=== PATIENT | male | born 1990 | race Caucasian/White ===

== ENCOUNTER 2024-01-09 16:46 | Emergency (ER) | payer SELFPAY ==
[2024-01-09 16:47] VITALS: BP 151/90; PULSE 65; RESP 16; TEMP 36.2; O2SAT 99; BMI 22.5
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
--- NOTE | 2024-01-09 17:10 | RAD_ITS ---
STUDY: X-RAY - LEFT CLAVICLE REASON FOR EXAM: Male, 33 years old. injury TECHNIQUE: 2 view(s) of the clavicle. COMPARISON: No relevant prior comparison study available FINDINGS: BONES: No fracture demonstrated. JOINTS: No dislocation. SOFT TISSUES: Unremarkable. RAD/Clavicle IMPRESSION: No evidence of fracture. Electronically Signed: Lindsay Moser MD at 17:35 EDT ,
[2024-01-09 17:52] VITALS: BP 130/88; PULSE 60; RESP 16; TEMP 36.2; O2SAT 100
== END 2024-01-09 17:53 | disposition home or self-care (01) ==
PROVIDERS: Emergency Provider Emergency Medicine; Visit Provider Emergency Medicine
DX: S40.012A Contusion of left shoulder, initial encounter (principal); S40.212A Abrasion of left shoulder, initial encounter; S50.312A Abrasion of left elbow, initial encounter; V18.0XXA Pedal cycle driver injured in noncollision transport accident in nontraffic accident, initial encounter; Y93.55 Activity, bike riding; F17.290 Nicotine dependence, other tobacco product, uncomplicated
CPT/HCPCS: 73000; 99282